=== PATIENT | female | born 1980 | race Caucasian/White ===

== ENCOUNTER 2016-05-17 14:00 | Outpatient (RCR) | payer OTHER | END 2016-05-18 | disposition home or self-care (01) | LOC: M OUTALCOH 14:00 | PROVIDERS: ATTEND Psychiatry & Neurology Psychiatry | DX: F11.20 Opioid dependence, uncomplicated (principal); F14.20 Cocaine dependence, uncomplicated; Z72.0 Tobacco use ==

== ENCOUNTER 2016-06-14 14:00 | Outpatient (RCR) | payer OTHER | END 2016-06-15 | LOC: M OUTALCOH 14:00 | PROVIDERS: ATTEND Psychiatry & Neurology Psychiatry | DX: F14.20 Cocaine dependence, uncomplicated (principal); F11.20 Opioid dependence, uncomplicated; Z72.0 Tobacco use ==

== ENCOUNTER → 2016-07-16 | Outpatient (RCR) | payer OTHER | LOC: M OUTALCOH 06-18 08:53 | PROVIDERS: ATTEND Psychiatry & Neurology Psychiatry | DX: F14.20 Cocaine dependence, uncomplicated (principal); F11.20 Opioid dependence, uncomplicated; Z72.0 Tobacco use ==

== ENCOUNTER 2016-08-13 15:00 | Outpatient (RCR) | payer OTHER | END 2016-08-15 | LOC: M OUTALCOH 15:00 | PROVIDERS: ATTEND Psychiatry & Neurology Psychiatry | DX: F14.20 Cocaine dependence, uncomplicated (principal); F11.20 Opioid dependence, uncomplicated; Z72.0 Tobacco use ==

== ENCOUNTER → 2016-12-14 | Outpatient (REF) | LOC: M LAB 13:28 | PROVIDERS: ATTEND Nurse Practitioner Adult Health | DX: Z02.1 Encounter for pre-employment examination (principal) ==

== ENCOUNTER 2018-03-27 21:06 | Emergency (ER) | payer SELFPAY, OTHER ==
[2018-03-27] MEDS: OXYCODONE/APAP 5MG/325MG(BULK FOR ED) 1 TABLET PO (22:38)
== END 2018-03-27 22:39 | disposition home or self-care (01) ==
LOC: M ED 21:06
DX: R68.84 Jaw pain (principal); Z88.8 Allergy status to other drugs, medicaments and biological substances; F17.210 Nicotine dependence, cigarettes, uncomplicated
CPT/HCPCS: 99282

== ENCOUNTER 2018-06-19 19:29 | Inpatient (IN) | payer OTHER, SELFPAY ==
[~2018-06-19] VITALS: Ht 170.2 cm; Wt 75.8 kg
[~2018-06-19 19:29] MED LIST: PERC5TAB12 PO
[2018-06-19] MEDS ORDERED: LAMO25TA4 (19:36)
[2018-06-19] MEDS ORDERED: QUET1TAB7 (19:36)
[2018-06-19 20:25] LABS: INFLUENZA A AMPLIFICATION NEGATIVE (NEGATIVE); INFLUENZA B AMPLIFICATION NEGATIVE (NEGATIVE)
[2018-06-19] MEDS ORDERED: NS 1,000 ML IV ONE (21:30)
[2018-06-19 21:44] LABS: BASO % 0.1 % (0.0-1.0); EOS % 0.2 % (0.0-3.0); HEMATOCRIT 35.9 % (36.0-47.0); HEMOGLOBIN 12.2 g/dl (12.0-15.5); LYMPH # 2.2 10^3/uL (1.5-4.5); LYMPH % 12.6 % (24.0-44.0); MEAN CORPUSCULAR HEMOGLOBIN 30.8 pg (27.0-33.0); MEAN CORPUSCULAR VOLUME 90.7 fl (80.0-96.0); MONO # 0.8 10^3/uL (0.0-0.8); MONO % 4.6 % (0.0-5.0); NEUTROPHILS # 14.4 10^3/uL (1.8-7.7); NEUTROPHILS % 82.1 % (36.0-66.0); PLATELET COUNT, AUTOMATED 379 10^3/uL (150-450); RED BLOOD COUNT 3.96 10^6/uL (4.00-5.40); WHITE BLOOD COUNT 17.5 10^3/uL (4.0-10.0)
[2018-06-19 21:45] LABS: VENOUS BASE EXCESS -3.9 (-2.0-2.0); VENOUS HCO3 21.3 MEQ/L (23.0-27.0); VENOUS O2 SATURATION 76.4 % (60.0-80.0); VENOUS PARTIAL PRESSURE CO2 39.5 mmHg (38.0-50.0); VENOUS PARTIAL PRESSURE O2 42.6 mmHg (30.0-50.0); VENOUS STANDARD HCO3 20.8 MEQ/L; VENOUS TOTAL CO2 22.5 MEQ/L (24.0-28.0)
[2018-06-19 21:55] LABS: INR 1.05; PROTHROMBIN TIME 13.8 SECONDS (12.1-14.4)
[2018-06-19 21:58] LABS: D-DIMER QUANT 443.58 ng/ml (<500)
[2018-06-19 22:02] LABS: ERYTHROCYTE SEDIMENTATION RATE 66 mm/hr (0-20)
[2018-06-19 22:10] LABS: ALBUMIN 3.7 GM/DL (3.2-5.2); ALT/SGPT 14 U/L (12-78); BILIRUBIN,DIRECT < 0.1 MG/DL (0.0-0.2); BILIRUBIN,TOTAL 0.3 MG/DL (0.2-1.0); BLOOD UREA NITROGEN 11 MG/DL (7-18); CALCIUM LEVEL 8.5 MG/DL (8.5-10.1); CARBON DIOXIDE LEVEL 23 MEQ/L (21-32); CHLORIDE LEVEL 108 MEQ/L (98-107); CK-MB VALUE MASS < 1.0 NG/ML (<3.6); CPK CREATINE PHOSPHOKINASE 174 U/L (26-192); CREATININE FOR GFR 1.03 MG/DL (0.55-1.30); FREE T4 1.31 NG/DL (0.76-1.46); GLOMERULAR FILTRATION RATE > 60.0 (>60); GLUCOSE, FASTING 100 MG/DL (70-100); MB/CK RELATIVE INDEX 0.57 (< OR =4); NT-PRO BNP 95 PG/ML (<125); POTASSIUM SERUM 3.3 MEQ/L (3.5-5.1); SODIUM LEVEL 141 MEQ/L (136-145); TOTAL PROTEIN 7.6 GM/DL (6.4-8.2); TROPONIN I < 0.02 NG/ML (< 0.10)
--- NOTE | 2018-06-19 22:10 | REP ---
Clinical: Shortness of breath . Comparison: None . Technique: PA and lateral. Findings: The mediastinum and cardiac silhouette are normal. The lung marcano are clear and without acute consolidation, effusion, or pneumothorax. The skeletal structures are intact and normal. Impression: 1. No acute cardiopulmonary process. Electronically Signed by Hiro Kelly MD 06/19/2018 10:02 P
--- NOTE | 2018-06-19 22:35 | REPVR ---
EXAM: US Duplex Right Lower Extremity Veins, Limited EXAM DATE/TIME: 06/19/2018 10:04 PM CLINICAL HISTORY: 37 years old, female; Signs and symptoms; Swelling (edema) of limb; Lower extremity, right; Additional info: Swelling/cramping right leg TECHNIQUE: Real-time Duplex ultrasound of the Right Lower Extremity with 2-D casey scale, color Doppler flow and spectral waveform analysis. Limited exam was focused on the right lower extremity veins. COMPARISON: No relevant prior studies available. FINDINGS: Right deep veins: Unremarkable. The common femoral, femoral, proximal profunda femoral and popliteal veins are patent without thrombus. Normal Doppler waveforms. Normal compressibility and/or augmentation response. Right superficial veins: Unremarkable. Saphenofemoral junction is patent without thrombus. Soft tissues: Unremarkable. IMPRESSION: No acute findings. No evidence of deep vein thrombosis. Electronically signed by: Kvng John On 06/19/2018 22:35:40 PM
[2018-06-19] MEDS ORDERED: methylPREDNISolone INJ 125 MG/2 ML VIAL (J2930) IV ONE (22:45)
[2018-06-19] MEDS ORDERED: ALBUTEROL SULFATE 2.5 MG/0.5 ML INH NEB SOLN NEB ONE (22:45)
[2018-06-20] MEDS ORDERED: ISOVUE-370 76% 100ML VIAL (Q9967) As Ordered ONE (00:05)
--- NOTE | 2018-06-20 01:04 | REPVR ---
EXAM: CT Angiography Chest With Contrast EXAM DATE/TIME: 06/19/2018 12:10 AM CLINICAL HISTORY: 37 years old, female; Signs and symptoms; Cough and shortness of breath; Additional info: SOB x 2 months TECHNIQUE: Axial computed tomographic angiography images of the chest with intravenous contrast using CT angiography protocol. All CT scans at this facility use at least one of these dose optimization techniques: automated exposure control; mA and/or kV adjustment per patient size (includes targeted exams where dose is matched to clinical indication); or iterative reconstruction. Coronal and sagittal reformatted images were created and reviewed. MIP reconstructed images were created and reviewed. CONTRAST: Contrast Material: 75 ml of iso 370; Contrast Route: iv COMPARISON: CR Chest, 2 view PA, Lat 06/19/2018 8:07 PM FINDINGS: Pulmonary arteries: The main pulmonary artery measures 25 mm. No pulmonary embolism is identified. Aorta: The ascending thoracic aorta measures 26 mm. Lungs: Infiltrate in the left lower lobe and minimal infiltrates in the lingula, right lower lobe and anterior segment of the right upper lobe consistent with pneumonia. Pleural space: Normal. No pneumothorax. No pleural effusion. Heart: Normal. No cardiomegaly. No pericardial effusion. Lymph nodes: Upper normal left inferior hilar nodes. Bones/joints: Unremarkable. No acute fracture. Soft tissues: Unremarkable. IMPRESSION: 1. Left lower lobe and to a lesser degree lingular, right lower lobe and anterior right upper lobe infiltrates consistent with pneumonia. 2. Otherwise negative CTA chest. No pulmonary embolism is identified. Electronically signed by: Cisco Parham On 06/20/2018 01:03:26 AM
[2018-06-20] MEDS ORDERED: NS 1,000 ML IV ONE (01:30)
[2018-06-20] MEDS ORDERED: PIPERACILLIN/TAZOBACTAM SOD 4.5 GM in D5W MINI-BAG PLUS 50 ML IV ONE (01:30)
[2018-06-20] MEDS ORDERED: NS 1,000 ML IV SCH (01:50)
[2018-06-20] MEDS ORDERED: LAMO25TA4 PO (01:51)
[2018-06-20] MEDS ORDERED: VENTAER INH (01:51)
[2018-06-20] MEDS ORDERED: HYDR-3363 PO (01:51)
[2018-06-20] MEDS ORDERED: TRAZ-160 PO (01:51)
[2018-06-20] MEDS ORDERED: QUET1TAB7 PO (01:51)
[2018-06-20] MEDS ORDERED: ONDANSETRON 4MG/2ML VIAL (J2405) IV PRN (02:00)
[2018-06-20] MEDS ORDERED: hydrOXYzine 25 MG TAB PO PRN (02:00)
[2018-06-20] MEDS: POTASSIUM CHLORIDE 10 MEQ SR TABLET PO SCH ×2 (03:44→06:02)
[2018-06-20] MEDS: cefTRIAXone SOD 1 GM in D5W MINI-BAG PLUS 50 ML IV SCH (03:44)
[2018-06-20 05:00] VITALS: BP 123/81
[2018-06-20] MEDS: DOXYCYCLINE HYCLATE 100 MG in D5W MINI-BAG PLUS 100 ML IV SCH ×2 (06:02→16:51)
[2018-06-20] MEDS: HEPARIN SOD (PORCINE) 5000 UNITS/ML VIAL SC SCH ×3 (06:02→20:55)
--- NOTE | 2018-06-20 07:08 | HPE ---
DATE OF ADMISSION: 06/20/2018 CHIEF COMPLAINT: Cough, shortness of breath, fevers and chills. HISTORY OF PRESENT ILLNESS: Patient is a 37-year-old female with a history of bipolar disorder and migraines. She presented to the emergency room with worsening nonproductive cough, subjective fevers and chills, nausea and vomiting, progressive dyspnea on exertion for the last 8 days. Notably in the patient's history, in early April she had some pulmonary-type symptoms. Went to urgent care and was given some prednisone and a dose of Zithromax. She improved temporarily but subsequently worsened over the last 7-8 days with nonproductive cough, subjective fevers and chills, nausea, vomiting, worsening dyspnea. She denies any chest pain, abdominal pain, urinary symptoms. PAST MEDICAL HISTORY: See history of present illness (HPI). PAST SURGICAL HISTORY: section. Hysterectomy. ALLERGIES: SUMATRIPTAN. HOME MEDICATIONS: - hydroxyzine - Lamictal - Seroquel - trazodone SOCIAL HISTORY: She is a current smoker. Denies alcohol or illicit drug use. FAMILY HISTORY: Noncontributory. REVIEW OF SYSTEMS: A 12-point review of systems was completed, all of which were negative except those listed in the history of present illness (HPI). Vitals on admission: Temperature 97, pulse 114, respirations 20, saturating 100% on room air. PHYSICAL EXAMINATION: General: She is well-nourished in no apparent distress. Head is normocephalic, atraumatic. Eyes: Extraocular movements are intact. Pupils equal, round, and reactive to light. Neck is supple. No jugular venous pulse (JVP). Lungs: Right lower lobe crackles. No wheezing. No use of accessory muscles. Cardiovascular: Tachycardic. Normal S1, S2. No murmurs, gallops or rubs. Abdomen is soft, nontender, nondistended. Positive bowel sounds. No rebound or guarding. Extremities: No pitting edema or calf tenderness. Skin is intact. No rashes, lesions or breakdown. Neurologic: Alert and oriented timed three. No focal deficits. LABS AND IMAGING: Done in the emergency room. White count 17, hemoglobin and hematocrit 12/35, platelets 379. Coagulations within normal limits. D-dimer is 443. Chemistries show potassium 3.3, BUN and creatinine of 11 and 1.0. CRP 12.7, troponins are negative, lactate is pending. Urinalysis (UA) is unremarkable. Rapid flu is negative. CT angio of the chest shows left lower lobe, and to a lesser degree, right lower lobe and anterior right upper lobe infiltrates consistent with pneumonia. Otherwise, negative CTA. No pulmonary embolus (PE). Dopplers are negative. Chest x-ray is unremarkable. ASSESSMENT/PLAN: Sepsis secondary to community acquired pneumonia: Will treat her with ceftriaxone and doxycycline, oxygen as needed. Sputum culture, urine legionella, urine pneumococcal antigen. Tylenol as needed for fevers and chills. IV fluids. Will get a lactate. For mood disorder, continue home medications. Supportive deep venous thrombosis (DVT): Heparin subcutaneous. Gastrointestinal (GI) prophylaxis: Not indicated. Diet: Regular.
[2018-06-20 07:50] VITALS: BP 128/73
[2018-06-20] MEDS: IPRATROPIUM 0.5MG/ALBUTEROL 2.5MG INH SOL UD 3ML (DUONEB)(J7620) NEB PRN ×2 (08:50→16:15)
[2018-06-20] MEDS ORDERED: ACETAMINOPHEN TAB 650MG DOSE (2X325MG) PO ONE (09:00)
--- NOTE | 2018-06-20 11:43 | ECGEPIP ---
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
[2018-06-20] MEDS: ACETAMINOPHEN TAB 650MG DOSE (2X325MG) PO PRN ×2 (12:04→17:32)
--- NOTE | 2018-06-20 12:44 | IPNPDOC ---
Date Seen The patient was seen on 06/20/18. Progress Note ADDENDUM : C/O HEADACHE allergy to Sumatriptan iv reglan and iv benadryl C/O NONPRODUCTIVE COUGH mucinex bid respiratory therapy to induce sputum check mrsa screen and sputum cx. VS, I&O, 24H, Fishbone Vital Signs/I&O Vital Signs Date Time Temp Pulse Resp B/P (MAP) Pulse Ox O2 Delivery O2 Flow Rate FiO2 06/20/18 07:50 98.0 102 20 128/73 (91) 98 06/20/18 02:30 Room Air I&O- Last 24 Hours up to 6 AM 06/20/18 06:00 Intake Total 240 ml Balance 240 ml Laboratory Data 24H LABS Laboratory Tests 2 06/19/18 19:42: Influenza Type A (RT-PCR) NEGATIVE, Influenza Type B (RT-PCR) NEGATIVE 06/19/18 21:28: Immature Granulocyte % (Auto) 0.4, White Blood Count 17.5H, Red Blood Count 3.96L, Hemoglobin 12.2, Hematocrit 35.9L, Mean Corpuscular Volume 90.7, Mean Corpuscular Hemoglobin 30.8, Mean Corpuscular Hemoglobin Concent 34.0, Red Cell Distribution Width 12.5, Platelet Count 379, Neutrophils (%) (Auto) 82.1H, Lymp hocytes (%) (Auto) 12.6L, Monocytes (%) (Auto) 4.6, Eosinophils (%) (Auto) 0.2, Basophils (%) (Auto) 0.1, Neutrophils # (Auto) 14.4H, Lymphocytes # (Auto) 2.2, Monocytes # (Auto) 0.8, Eosinophils # (Auto) 0.0, Basophils # (Auto) 0.0, Nucleated Red Blood Cells % (auto) 0.0, Erythrocyte Sedimentation Rate 66H, Prothrombin Time 13.8, Prothromb Time International Ratio 1.05, Activated Partial Thromboplast Time 36.0, D-Dimer, Quantitative 443.58, Urine Color YELLOW, Urine Appearance CLEAR, Urine pH 5.0, Urine Specific [place] 1.015, Urine Protein NEGATIVE, Urine Glucose (UA) NEGATIVE, Urine Ketones NEGATIVE, Urine Blood NEGATIVE, Urine Nitrite NEGATIVE, Urine Bilirubin 1+H, Urine Urobilinogen 0.2, Urine Leukocyte Esterase NEGATIVE, Urine WBC (Auto) 1, Urine RBC (Auto) 0, Urine Hyaline Casts (Auto) 0, Urine Bacteria (Auto) NEGATIVE, Urine Squamous Epithelial Cells 1, Urine Mucus (Auto) SMALL, Urine Sperm (Auto) , Blood Gas Bicarbonate Standard 20.8, Venous Blood pH 7.350, Venous Blood Partial Pressure CO2 39.5, Venous Blood Partial Pressure O2 42.6, Venous Blood Total Carbon Dioxide 22.5L, Venous Blood HCO3 21.3L, Venous Blood Oxygen Saturation 76.4, Venous Blood Base Excess -3.9L, Anion Gap 10, Glomerular Filtration Rate > 60.0, Calcium Level 8.5, Aspartate Amino Transf (AST/SGOT) 14, Alanine Aminotransferase (ALT/SGPT) 14, Alkaline Phosphatase 80, Total Bilirubin 0.3, Direct Bilirubin < 0.1, Total Creatine Kinase 174, Creatine Kinase MB < 1.0, Creatine Kinase MB Relative Index 0.57, Troponin I < 0.02, C-Reactive Protein, Quantitative 12.70H, NM-Urw-V-Type Natriuretic Peptide 95, Total Protein 7.6, Albumin 3.7, Albumin/Globulin Ratio 0.95L, Thyroid Stimulating Hormone (TSH) 1.250, Free Thyroxine 1.31 06/20/18 01:44: Lactic Acid Level 2.7*H 06/20/18 02:15: 06/20/18 06:16: Lactic Acid Followup at 4 Hours 2.4*H CBC/BMP Laboratory Tests 06/19/18 21:28 Red Blood Count 3.96 L, Mean Corpuscular Volume 90.7, Mean Corpuscular Hemoglobin 30.8, Mean Corpuscular Hemoglobin Concent 34.0, Red Cell Distribution Width 12.5, Neutrophils (%) (Auto) 82.1 H, Lymphocytes (%) (Auto) 12.6 L, Monocytes (%) (Auto) 4.6, Eosinophils (%) (Auto) 0.2, Basophils (%) (Auto) 0.1, Neutrophils # (Auto) 14.4 H, Lymphocytes # (Auto) 2.2, Monocytes # (Auto) 0.8, Eosinophils # (Auto) 0.0, Basophils # (Auto) 0.0 Microbiology Microbiology 06/20/18 Blood Culture, Received Pending 06/20/18 Blood Culture, Received Pending 06/20/18 Respiratory Virus Panel (PCR) ([facility]) - Final, Complete 06/19/18 Group A Streptococcus Screen ([facility]), Received Pending ANN NERI MD Jun 20, 2018 12:44
[2018-06-20] MEDS ORDERED: METOCLOPRAMIDE INJ 10MG/2ML VIAL (J2765) IV ONE (12:45)
[2018-06-20] MEDS ORDERED: diphenhydrAMINE INJ 50MG/ML VIAL (J1200) IV ONE (12:45)
[2018-06-20] MEDS: guaiFENesin ER 600 MG TAB PO SCH ×2 (14:01→20:56)
[2018-06-20 16:08] VITALS: BP 129/84
[2018-06-20] MEDS ORDERED: KETOROLAC 30 MG/ML VIAL (J1885) IV PRN (18:30)
[2018-06-20 20:00] VITALS: BP 138/88
[2018-06-20] MEDS: QUEtiapine FUMARATE 25 MG TAB PO SCH (20:54)
[2018-06-20] MEDS: lamoTRIgine 25 MG TAB PO SCH (20:54)
[2018-06-20] MEDS: NS 1,000 ML IV SCH (20:57)
[2018-06-20 21:01] LABS: BASO % 0.1 % (0.0-1.0); EOS % 0.1 % (0.0-3.0); HEMATOCRIT 31.9 % (36.0-47.0); HEMOGLOBIN 10.6 g/dl (12.0-15.5); LYMPH # 2.2 10^3/uL (1.5-4.5); LYMPH % 16.1 % (24.0-44.0); MEAN CORPUSCULAR HGB CONC 33.2 g/dl (32.0-36.5); MEAN CORPUSCULAR VOLUME 90.4 fl (80.0-96.0); MONO % 7.1 % (0.0-5.0); NEUTROPHILS # 10.3 10^3/uL (1.8-7.7); NEUTROPHILS % 75.8 % (36.0-66.0); PLATELET COUNT, AUTOMATED 401 10^3/uL (150-450); RED BLOOD COUNT 3.53 10^6/uL (4.00-5.40); WHITE BLOOD COUNT 13.7 10^3/uL (4.0-10.0)
[2018-06-20 21:19] LABS: BLOOD UREA NITROGEN 8 MG/DL (7-18); CALCIUM LEVEL 8.4 MG/DL (8.5-10.1); CARBON DIOXIDE LEVEL 22 MEQ/L (21-32); CHLORIDE LEVEL 114 MEQ/L (98-107); CREATININE FOR GFR 0.97 MG/DL (0.55-1.30); GLOMERULAR FILTRATION RATE > 60.0 (>60); GLUCOSE, FASTING 99 MG/DL (70-100); POTASSIUM SERUM 3.6 MEQ/L (3.5-5.1); SODIUM LEVEL 145 MEQ/L (136-145)
[2018-06-21] VITALS: BP 125/75
[2018-06-21] MEDS: KETOROLAC 30 MG/ML VIAL (J1885) IV SCH ×2 (00:18→05:00)
[2018-06-21] MEDS: cefTRIAXone SOD 1 GM in D5W MINI-BAG PLUS 50 ML IV SCH (01:31)
[2018-06-21] MEDS: traZODone 50 MG TAB PO PRN ×2 (01:31→21:56)
[2018-06-21] MEDS: DOXYCYCLINE HYCLATE 100 MG in D5W MINI-BAG PLUS 100 ML IV SCH ×2 (04:59→16:49)
[2018-06-21] MEDS: HEPARIN SOD (PORCINE) 5000 UNITS/ML VIAL SC SCH ×3 (05:00→21:56)
[2018-06-21] MEDS: NS 1,000 ML IV SCH (06:08)
[2018-06-21 08:00] VITALS: BP 136/87
[2018-06-21] MEDS: METOCLOPRAMIDE INJ 10MG/2ML VIAL (J2765) IV SCH ×3 (08:00→20:00)
[2018-06-21 08:01] LABS: HEMATOCRIT 31.2 % (36.0-47.0); HEMOGLOBIN 10.2 g/dl (12.0-15.5); MEAN CORPUSCULAR HEMOGLOBIN 29.7 pg (27.0-33.0); MEAN CORPUSCULAR HGB CONC 32.7 g/dl (32.0-36.5); MEAN CORPUSCULAR VOLUME 90.7 fl (80.0-96.0); PLATELET COUNT, AUTOMATED 373 10^3/uL (150-450); RED BLOOD COUNT 3.44 10^6/uL (4.00-5.40); WHITE BLOOD COUNT 9.9 10^3/uL (4.0-10.0)
[2018-06-21 08:27] LABS: BLOOD UREA NITROGEN 12 MG/DL (7-18); CARBON DIOXIDE LEVEL 22 MEQ/L (21-32); CHLORIDE LEVEL 112 MEQ/L (98-107); CREATININE FOR GFR 0.95 MG/DL (0.55-1.30); GLOMERULAR FILTRATION RATE > 60.0 (>60); GLUCOSE, FASTING 90 MG/DL (70-100); POTASSIUM SERUM 3.6 MEQ/L (3.5-5.1); SODIUM LEVEL 142 MEQ/L (136-145)
[2018-06-21] MEDS: guaiFENesin ER 600 MG TAB PO SCH ×2 (08:33→21:56)
--- NOTE | 2018-06-21 09:22 | IPNPDOC ---
Date Seen The patient was seen on 06/21/18. Progress Note SUBJECTIVE: C/O nonproductive cough 06/20/18 induced sputum, cx pending improved h/a diffuse without aura on iv toradol iv reglan iv fluids. allergy to sumatriptan c/o joint pains b/l mcp, pip, dip x about 6-8 weeks at home and left hip pain worse when sitting and driving "deep ache" going to my knee. no h/o trauma or weakness. also c/o alopecia PHYSICAL EXAMINATION: General: She is well-nourished in no apparent distress. Head is normocephalic, atraumatic. Eyes: Extraocular movements are intact. Pupils equal, round, and reactive to light. Neck is supple. No jugular venous pulse (JVP). Lungs: Right lower lobe crackles. No wheezing. No use of accessory muscles. Cardiovascular: Tachycardic. Normal S1, S2. No murmurs, gallops or rubs. Abdomen is soft, nontender, nondistended. Positive bowel sounds. No rebound or guarding. Extremities: No pitting edema or calf tenderness.left hip ROM limited with internal rotation. flexion and extension wnl. Skin is intact. No rashes, lesions or breakdown. musculoskeletal: no bogginess of b/l mcp, pip, dip joints. Neurologic: Alert and oriented timed three. No focal deficits. LABS AND IMAGING: PLS SEE BELOW ASSESSMENT/PLAN: Patient is a 37-year-old female with a history of bipolar disorder and migraines. She presented to the emergency room with worsening nonproductive cough, subjective fevers and chills, nausea and vomiting, progressive dyspnea on exertion for the last 8 days. Notably in the patient's history, in early April she had some pulmonary-type symptoms. Went to urgent care and was given some prednisone and a dose of Zithromax. She improved temporarily but subsequently worsened over the last 7-8 days with nonproductive cough, subjective fevers and chills, nausea, vomiting, worsening dyspnea. She denies any chest pain, abdominal pain, urinary symptoms. Sepsis secondary to community acquired pneumonia: Will treat her with ceftriaxone and doxycycline, oxygen as needed. Sputum culture, urine legionella, urine pneumococcal antigen. Tylenol as needed for fevers and chills. IV fluids. Will get a lactate. Bilateral CAP. awaiting sputum cx. check complement levels and ig levels. Left hip pain most likely meralgia paresthetica. NSAIDs and physical therapy. Xray of left hip joint pains in b/l hand check johnathan, xray. Migraine on iv metoclopramide iv toradol iv fluids. Alopecia most likely telogen effluvium. check tsh. For mood disorder, continue home medications. Supportive deep venous thrombosis (DVT): Heparin subcutaneous. Gastrointestinal (GI) prophylaxis: Not indicated. Diet: Regular. VS, I&O, 24H, Fishbone Vital Signs/I&O Vital Signs Date Time Temp Pulse Resp B/P (MAP) Pulse Ox O2 Delivery O2 Flow Rate FiO2 06/21/18 00:00 99.1 81 16 125/75 (92) 97 06/20/18 02:30 Room Air I&O- Last 24 Hours up to 6 AM 06/21/18 06:00 Intake Total 3430 ml Output Total 2300 ml Balance 1130 ml Laboratory Data 24H LABS Laboratory Tests 2 06/20/18 20:51: Immature Granulocyte % (Auto) 0.8, White Blood Count 13.7H, Red Blood Count 3.53L, Hemoglobin 10.6L, Hematocrit 31.9L, Mean Corpuscular Volume 90.4, Mean Corpuscular Hemoglobin 30.0, Mean Corpuscular Hemoglobin Concent 33.2, Red Cell Distribution Width 12.8, Platelet Count 401, Neutrophils (%) (Auto) 75.8H, Lymphocytes (%) (Auto) 16.1L, Monocytes (%) (Auto) 7.1H, Eosinophils (%) (Auto) 0.1, Basophils (%) (Auto) 0.1, Neutrophils # (Auto) 10.3H, Lymphocytes # (Auto) 2.2, Monocytes # (Auto) 1.0H, Eosinophils # (Auto) 0.0, Basophils # (Auto) 0.0, Nucleated Red Blood Cells % (auto) 0.0, Anion Gap 9, Glomerular Filtration Rate > 60.0, Lactic Acid Level 1.6, Blood Urea Nitrogen 8, Creatinine 0.97, Sodium Level 145, Potassium Level 3.6, Chloride Level 114H, Carbon Dioxide Level 22, Calcium Level 8.4L 06/21/18 07:20: CBC/BMP Laboratory Tests 06/20/18 20:51 Red Blood Count 3.53 L, Mean Corpuscular Volume 90.4, Mean Corpuscular Hemoglobin 30.0, Mean Corpuscular Hemoglobin Concent 33.2, Red Cell Distribution Width 12.8, Neutrophils (%) (Auto) 75.8 H, Lymphocytes (%) (Auto) 16.1 L, Monocytes (%) (Auto) 7.1 H, Eosinophils (%) (Auto) 0.1, Basophils (%) (Auto) 0.1, Neutrophils # (Auto) 10.3 H, Lymphocytes # (Auto) 2.2, Monocytes # (Auto) 1.0 H, Eosinophils # (Auto) 0.0, Basophils # (Auto) 0.0, Calcium Level 8.4 L Microbiology Microbiology 06/20/18 Blood Culture - Preliminary, Resulted No growth after 24 hours . All specim... 06/20/18 Blood Culture - Preliminary, Resulted No growth after 24 hours . All specim... 06/20/18 Gram Stain, Received Pending 06/20/18 Sputum Culture, Received Pending 06/20/18 MRSA Screen, Received Pending 06/20/18 Respiratory Virus Panel (PCR) ([facility]) - Final, Complete 06/19/18 Group A Streptococcus Screen ([facility]) - Final, Complete ANN NERI MD Jun 21, 2018 07:54
[2018-06-21 10:16] LABS: C REACTIVE PROTEIN QUANTITATIV 4.35 MG/DL (0.00-0.30); COMPLEMENT C3 126 MG/DL (90-180); COMPLEMENT C4 35 MG/DL (10-40); IMMUNOGLOBULIN A 41.9 MG/DL (70-400); IMMUNOGLOBULIN G 621 MG/DL (681-1648); IMMUNOGLOBULIN M 46.5 MG/DL (40-230); RHEUMATOID FACTOR QUANT < 10.0 IU/ML (<15.0); THYROID STIMULATING HORMONE 0.822 uIU/ML (0.358-3.740)
[2018-06-21 10:17] LABS: ERYTHROCYTE SEDIMENTATION RATE 49 mm/hr (0-20)
[2018-06-21] MEDS ORDERED: KETOROLAC 30 MG/ML VIAL (J1885) IV PRN (11:45)
--- NOTE | 2018-06-21 15:12 | REP ---
Right hand series: Four views. History: Joint pain, MCP and PIP. Rule out rheumatoid arthritis. No comparison hand radiographs. Findings: Four views of the right hand demonstrate overall normal mineralization. There is mild spurring and irregularity at the DIP joint of the ring finger. Lateral view suggests post-traumatic deformity of the distal phalanx. Overall mineralization pattern is normal. Joint spaces are preserved. No erosive changes seen to suggest rheumatoid arthritis. 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 Otherwise normal. Electronically Signed by Bryan Campo MD 06/21/2018 05:08 P
[2018-06-21 16:00] VITALS: BP 153/87
[2018-06-21 20:00] VITALS: BP 160/81
[2018-06-21] MEDS: lamoTRIgine 25 MG TAB PO SCH (21:57)
[2018-06-21] MEDS: QUEtiapine FUMARATE 25 MG TAB PO SCH (21:57)
[2018-06-22] VITALS: BP 133/81
[2018-06-22] MEDS: METOCLOPRAMIDE INJ 10MG/2ML VIAL (J2765) IV SCH ×2 (02:00→08:27)
[2018-06-22] MEDS: cefTRIAXone SOD 1 GM in D5W MINI-BAG PLUS 50 ML IV SCH (03:03)
[2018-06-22] MEDS: DOXYCYCLINE HYCLATE 100 MG in D5W MINI-BAG PLUS 100 ML IV SCH (05:52)
[2018-06-22] MEDS: HEPARIN SOD (PORCINE) 5000 UNITS/ML VIAL SC SCH (05:52)
[2018-06-22] MEDS ORDERED: MOXIFLOXACIN 400 MG TAB PO SCH (06:00)
[2018-06-22 07:26] LABS: HEMATOCRIT 33.8 % (36.0-47.0); HEMOGLOBIN 11.4 g/dl (12.0-15.5); MEAN CORPUSCULAR HEMOGLOBIN 30.1 pg (27.0-33.0); MEAN CORPUSCULAR HGB CONC 33.7 g/dl (32.0-36.5); MEAN CORPUSCULAR VOLUME 89.2 fl (80.0-96.0); PLATELET COUNT, AUTOMATED 434 10^3/uL (150-450); RED BLOOD COUNT 3.79 10^6/uL (4.00-5.40); WHITE BLOOD COUNT 11.6 10^3/uL (4.0-10.0)
[2018-06-22] MEDS ORDERED: AVEL1TAB3 PO (07:48)
[2018-06-22 07:49] LABS: BLOOD UREA NITROGEN 13 MG/DL (7-18); CALCIUM LEVEL 8.1 MG/DL (8.5-10.1); CARBON DIOXIDE LEVEL 22 MEQ/L (21-32); CHLORIDE LEVEL 112 MEQ/L (98-107); CREATININE FOR GFR 0.95 MG/DL (0.55-1.30); GLOMERULAR FILTRATION RATE > 60.0 (>60); GLUCOSE, FASTING 92 MG/DL (70-100); POTASSIUM SERUM 4.1 MEQ/L (3.5-5.1); SODIUM LEVEL 141 MEQ/L (136-145)
[2018-06-22 08:00] VITALS: BP 136/86
--- NOTE | 2018-06-22 08:18 | IPNPDOC ---
Date Seen The patient was seen on 06/22/18. Progress Note SUBJECTIVE: requesting to go home today. afebrile despite slight increased white count still w productive cough. sputum cx pending. no sob or chills. PHYSICAL EXAMINATION: General: She is well-nourished in no apparent distress. Head is normocephalic, atraumatic. Eyes: Extraocular movements are intact. Pupils equal, round, and reactive to light. Neck is supple. No jugular venous pulse (JVP). Lungs: Right lower lobe crackles. No wheezing. No use of accessory muscles. Cardiovascular: Tachycardic. Normal S1, S2. No murmurs, gallops or rubs. Abdomen is soft, nontender, nondistended. Positive bowel sounds. No rebound or guarding. Extremities: No pitting edema or calf tenderness.left hip ROM limited with internal rotation. flexion and extension wnl. Skin is intact. No rashes, lesions or breakdown. musculoskeletal: no bogginess of b/l mcp, pip, dip joints. Neurologic: Alert and oriented timed three. No focal deficits. LABS AND IMAGING: PLS SEE BELOW ASSESSMENT/PLAN: Patient is a 37-year-old female with a history of bipolar disorder and migraines. She presented to the emergency room with worsening nonproductive cough, subjective fevers and chills, nausea and vomit ing, progressive dyspnea on exertion for the last 8 days. Notably in the patient's history, in early April she had some pulmonary-type symptoms. Went to urgent care and was given some prednisone and a dose of Zithromax. She improved temporarily but subsequently worsened over the last 7-8 days with nonproductive cough, subjective fevers and chills, nausea, vomiting, worsening dyspnea. She denies any chest pain, abdominal pain, urinary symptoms. Sepsis secondary to community acquired pneumonia: Will treat her with ceftriaxone and doxycycline, oxygen as needed. Sputum culture, urine legionella, urine pneumococcal antigen. Tylenol as needed for fevers and chills. IV fluids. Will get a lactate. Bilateral CAP. awaiting sputum cx. wnl complement levels and slightly low ig levels. recheck ig levels once pneumonia resolves. outpt pcp to determine if needs immunology or ID referral. Left hip pain most likely meralgia paresthetica. NSAIDs and physical therapy. Xray of left hip joint pains in b/l hand check johnathan, xray. Migraine on iv metoclopramide iv toradol iv fluids. Alopecia most likely telogen effluvium. check tsh. For mood disorder, continue home medications. Supportive deep venous thrombosis (DVT): Heparin subcutaneous. Gastrointestinal (GI) prophylaxis: Not indicated. Diet: Regular. disposition: nv home today. VS, I&O, 24H, Fishbone Vital Signs/I&O Vital Signs Date Time Temp Pulse Resp B/P (MAP) Pulse Ox O2 Delivery O2 Flow Rate FiO2 06/22/18 00:00 97.5 82 18 133/81 (98) 97 06/20/18 02:30 Room Air I&O- Last 24 Hours up to 6 AM 06/22/18 06:00 Intake Total 1230 ml Output Total 2150 ml Balance -920 ml Laboratory Data 24H LABS Laboratory Tests 2 06/21/18 10:10: 06/22/18 07:17: Nucleated Red Blood Cells % (auto) 0.0, Anion Gap 7L, Glomerular Filtration Rate > 60.0, Blood Urea Nitrogen 13, Creatinine 0.95, Sodium Level 141, Potassium Level 4.1, Chloride Level 112H, Carbon Dioxide Level 22, Calcium Level 8.1L CBC/BMP Laboratory Tests 06/22/18 07:17 Red Blood Count 3.79 L, Mean Corpuscular Volume 89.2, Mean Corpuscular Hemoglobin 30.1, Mean Corpuscular Hemoglobin Concent 33.7, Red Cell Distribution Width 12.8, Calcium Level 8.1 L Microbiology Microbiology 06/20/18 Blood Culture - Preliminary, Resulted No Growth after 48 hours. All Specime... 06/20/18 Blood Culture - Preliminary, Resulted No Growth after 48 hours. All Specime... 06/20/18 Gram Stain - Final, Resulted 06/20/18 Sputum Culture, Resulted Pending 06/20/18 MRSA Screen - Final, Complete 06/20/18 Respiratory Virus Panel (PCR) ([facility]) - Final, Complete 06/19/18 Group A Streptococcus Screen ([facility]) - Final, Complete ANN NERI MD Jun 22, 2018 08:18
[2018-06-22] MEDS: guaiFENesin ER 600 MG TAB PO SCH (08:27)
[2018-06-22] MEDS ORDERED: MOXIFLOXACIN HCL 400 MG in APPROPRIATE DILUENT 1 EA IV ONE (10:00)
[2018-06-22 14:24] LABS: BODY FLUID CULTURE Not Indicated (.); LEGIONELLA ANTIGEN URINE Negative (Negative); ORGANISM ID Not indicated. (.); SPECIMEN SOURCE Urine (.); URINE STREP PNEUMONIAE ANTIGEN Negative (Negative)
[2018-06-23 00:08] LABS: ANTI DOUBLE STRAND-DNA AB <1 IU/mL (0-9); ANTINUCLEAR ANTIBODIES DIRECT Negative (Negative); COMPLEMENT TOTAL (CH50) > 60 U/mL (>41)
[2018-06-23] MEDS ORDERED: MOXIFLOXACIN 400 MG TAB PO SCH (06:00)
== END 2018-06-22 12:25 | disposition home or self-care (01) | DRG 871 ==
LOC: M ED 19:29 → M ED INP 06-20 01:50 → M PED 06-20 04:45
PROVIDERS: ADMIT Internal Medicine; ATTEND General Practice
DX: A41.9 Sepsis, unspecified organism (principal); J18.9 Pneumonia, unspecified organism; F31.9 Bipolar disorder, unspecified; G43.909 Migraine, unspecified, not intractable, without status migrainosus; L65.9 Nonscarring hair loss, unspecified

== ENCOUNTER 2019-01-15 06:03 | Emergency (ER) | payer OTHER ==
[~2019-01-15] VITALS: Ht 170.2 cm; Wt 70.5 kg
[~2019-01-15 06:03] MED LIST changes: +AVEL1TAB3 PO; +HYDR-3363 PO; +LAMO25TA4; +LAMO25TA4 PO; +QUET1TAB7; +QUET1TAB7 PO; +TRAZ-252 PO; +VENTAER INH
[2019-01-15 06:04] VITALS: BP 166/79
[2019-01-15] MEDS ORDERED: ATIV1TAB10 PO (06:08)
[2019-01-15] MEDS ORDERED: KETOROLAC 60 MG/2 ML VIAL (J1885) IM ONE (06:45)
[2019-01-15] MEDS ORDERED: ACETAMINOPHEN 500 MG TAB PO ONE (06:45)
[2019-01-15] MEDS ORDERED: GABA-1171 PO (07:29)
[2019-01-15] MEDS ORDERED: KETO10TAB PO (07:29)
[2019-01-15] MEDS ORDERED: GABAPENTIN 100 MG CAP PO ONE (07:30)
== END 2019-01-15 07:50 | disposition home or self-care (01) ==
LOC: M ED 06:03
DX: S02.5XXA Fracture of tooth (traumatic), initial encounter for closed fracture (principal); X58.XXXA Exposure to other specified factors, initial encounter; Y92.89 Other specified places as the place of occurrence of the external cause; Z79.899 Other long term (current) drug therapy; Z88.8 Allergy status to other drugs, medicaments and biological substances; F17.210 Nicotine dependence, cigarettes, uncomplicated
CPT/HCPCS: 96372; 99283; J1885

== ENCOUNTER 2020-02-09 03:28 | Emergency (ER) | payer OTHER ==
[~2020-02-09] VITALS: Ht 170.2 cm; Wt 70.5 kg
[~2020-02-09 03:28] MED LIST changes: +ATIV1TAB10 PO; +GABA-1171 PO; +KETO10TAB PO; +RALTEGRAVIR 400 MG TAB (ISENTRESS) PO SCH; +TRUVADA 200MG/300MG TABLET PO SCH
[2020-02-09] MEDS ORDERED: RALT40TA PO (04:09)
[2020-02-09] MEDS ORDERED: ONDA4TAB6 PO (04:09)
[2020-02-09] MEDS ORDERED: TRUVTAB PO (04:09)
[2020-02-09] MEDS ORDERED: ONDANSETRON 4 MG ORAL DISINTEGRATING TAB PO ONE (04:15)
[2020-02-09] MEDS ORDERED: EXPOSURE KIT-ADULT 7 DAY SUPPLY PO ONE (04:15)
[2020-02-09] MEDS ORDERED: RALTEGRAVIR 400 MG TAB (ISENTRESS) PO ONE (04:15)
[2020-02-09] MEDS ORDERED: TRUVADA 200MG/300MG TABLET PO ONE (04:15)
[2020-02-09 04:39] LABS: BASO % 0.1 % (0.0-1.0); EOS # 0.2 10^3/uL (0.0-0.5); EOS % 1.8 % (0.0-3.0); HEMATOCRIT 38.6 % (36.0-47.0); HEMOGLOBIN 12.4 g/dl (12.0-15.5); LYMPH # 2.7 10^3/uL (1.5-5.0); LYMPH % 29.8 % (24.0-44.0); MEAN CORPUSCULAR HEMOGLOBIN 29.6 pg (27.0-33.0); MEAN CORPUSCULAR HGB CONC 32.1 g/dl (32.0-36.5); MEAN CORPUSCULAR VOLUME 92.1 fl (80.0-96.0); MONO # 0.6 10^3/uL (0.0-0.8); MONO % 7.1 % (0.0-5.0); NEUTROPHILS # 5.5 10^3/uL (1.5-8.5); PLATELET COUNT, AUTOMATED 295 10^3/uL (150-450); RED BLOOD COUNT 4.19 10^6/uL (4.00-5.40)
[2020-02-09 04:53] LABS: ALBUMIN 4.2 GM/DL (3.2-5.2); ALT/SGPT 13 U/L (12-78); BILIRUBIN,TOTAL 0.2 MG/DL (0.2-1.0); BLOOD UREA NITROGEN 25 MG/DL (7-18); CALCIUM LEVEL 8.7 MG/DL (8.5-10.1); CARBON DIOXIDE LEVEL 27 MEQ/L (21-32); CHLORIDE LEVEL 109 MEQ/L (98-107); CREATININE FOR GFR 1.02 MG/DL (0.55-1.30); GLOMERULAR FILTRATION RATE > 60.0 (>58); GLUCOSE, FASTING 89 MG/DL (70-100); POTASSIUM SERUM 4.4 MEQ/L (3.5-5.1); SODIUM LEVEL 141 MEQ/L (136-145); TOTAL PROTEIN 7.1 GM/DL (6.4-8.2)
[2020-02-09 05:01] VITALS: BP 144/96
[2020-02-09 05:53] LABS: HEPATITIS B SURFACE ANTIGEN NEGATIVE (NEGATIVE)
[2020-02-09 05:54] LABS: HIV SCREEN CENTAUR EXPOSED NEGATIVE (NEGATIVE)
[2020-02-11 11:51] LABS: HEPATITIS B SURFACE ANTIBODY POSITIVE (POSITIVE)
== END 2020-02-09 05:03 | disposition home or self-care (01) ==
LOC: M ED 03:28
DX: Z77.21 Contact with and (suspected) exposure to potentially hazardous body fluids (principal); F31.9 Bipolar disorder, unspecified; Z88.8 Allergy status to other drugs, medicaments and biological substances; Z79.899 Other long term (current) drug therapy
CPT/HCPCS: 36415; 80053; 85025; 86706; 86803; 87340; 87389; 99283; Q0162

== ENCOUNTER → 2020-02-19 | Outpatient (CLI) | payer SELFPAY ==
[~2020-02-19] MED LIST changes: +ONDA4TAB6 PO; +RALT40TA PO; -RALTEGRAVIR 400 MG TAB (ISENTRESS) PO SCH; -TRUVADA 200MG/300MG TABLET PO SCH; +TRUVTAB PO
== END ==
LOC: M LABSMTC 10:04
PROVIDERS: ATTEND Pediatrics
DX: Z20.828 Contact with and (suspected) exposure to other viral communicable diseases (principal)

== ENCOUNTER → 2021-09-30 | Outpatient (REF) ==
[~2021-09-30] MED LIST changes: +EMTR1TAB16 PO; +QUET1TAB17; +QUET1TAB17 PO; -QUET1TAB7; -QUET1TAB7 PO; -TRUVTAB PO
== END ==
LOC: M LAB 07:55
PROVIDERS: ATTEND Nurse Practitioner Adult Health
DX: Z02.1 Encounter for pre-employment examination (principal)

== ENCOUNTER → 2021-10-19 | Outpatient (REF) | payer OTHER | LOC: M EMP 02:51 | PROVIDERS: ATTEND Nurse Practitioner Adult Health | DX: Z02.1 Encounter for pre-employment examination (principal) ==

== ENCOUNTER → 2022-08-20 | Outpatient (CLI) | payer BC ==
[2022-08-20 21:19] LABS: HEMATOCRIT 41.6 % (36.0-47.0)
[2022-08-20 21:20] LABS: APPEARANCE, URINE HAZY (CLEAR); BACTERIA, URINE AUTO 1+ (NEGATIVE); BASO % 0.2 % (0.0-1.0); BILIRUBIN, URINE AUTO NEGATIVE (NEGATIVE); BLOOD, URINE BLOOD NEGATIVE (NEGATIVE); COLOR, URINE YELLOW (YELLOW); EOS % 0.3 % (0.0-3.0); GLUCOSE, URINE (UA) AUTO NEGATIVE (NEGATIVE); HEMATOCRIT 41.8 % (36.0-47.0); HEMOGLOBIN 13.6 g/dl (12.0-15.5); KETONE, URINE AUTO TRACE mg/dL (NEGATIVE); LEUKOCYTE ESTERASE, URINE AUTO 1+ (NEGATIVE); LYMPH # 2.6 10^3/uL (1.5-5.0); MEAN CORPUSCULAR HEMOGLOBIN 29.7 pg (27.0-33.0); MEAN CORPUSCULAR HGB CONC 32.5 g/dl (32.0-36.5); MEAN CORPUSCULAR VOLUME 91.3 fl (80.0-96.0); MONO # 0.7 10^3/uL (0.0-0.8); MONO % 5.5 % (2.0-8.0); NEUTROPHILS # 8.4 10^3/uL (1.5-8.5); NEUTROPHILS % 71.7 % (36.0-66.0); NITRITE, URINE AUTO POSITIVE (NEGATIVE); PLATELET COUNT, AUTOMATED 424 10^3/uL (150-450); PROTEIN, URINE AUTO NEGATIVE (NEGATIVE); RBC, URINE AUTO 1 /HPF (0-3); RED BLOOD COUNT 4.58 10^6/uL (4.00-5.40); SPECIFIC GRAVITY URINE AUTO 1.018 (1.002-1.035); SQUAMOUS EPITHELIAL CELL UR AU 1 /HPF (0-6); UROBILINOGEN, URINE AUTO 0.2 mg/dL (0.0-2.0); WBC, URINE AUTO 33 /HPF (0-3); WHITE BLOOD COUNT 11.7 10^3/uL (4.0-10.0)
[2022-08-20 21:47] LABS: ALBUMIN 4.6 G/DL (3.2-5.2); ALKALINE PHOSPHATASE 291 U/L (46-116); ALT/SGPT 57 U/L (7.0-40); AST/SGOT 24 U/L (<34); BILIRUBIN,TOTAL 0.6 MG/DL (0.3-1.2); BLOOD UREA NITROGEN 15 MG/DL (9-23); CALCIUM LEVEL 9.8 MG/DL (8.5-10.1); CARBON DIOXIDE LEVEL 26 MMOL/L (20-31); CHLORIDE LEVEL 102 MMOL/L (98-107); CHOLESTEROL LEVEL 209 MG/DL (<200); CHOLESTEROL RISK RATIO 2.58 (<5); CREATININE FOR GFR 0.94 MG/DL (0.55-1.30); GLOMERULAR FILTRATION RATE > 60.0 (>58); GLUCOSE, FASTING 81 MG/DL (60-100); HDL CHOLESTEROL 80.7 MG/DL (>40); LDL CHOLESTEROL 94.7 MG/DL (<100); NON-HDL-C 128.3 MG/DL; POTASSIUM SERUM 4.5 MMOL/L (3.5-5.1); SODIUM LEVEL 137 MMOL/L (136-145); TOTAL PROTEIN 7.6 G/DL (5.7-8.2); TRIGLYCERIDES LEVEL 168 MG/DL (<150)
[2022-08-20 21:48] LABS: THYROID STIMULATING HORMONE 2.943 uIU/ML (0.55-4.78)
[2022-08-20 21:49] LABS: FREE T3 3.2 PG/ML (2.3-4.2); FREE T4 1.02 NG/DL (0.89-1.76)
[2022-08-20 21:50] LABS: VITAMIN B12 LEVEL 725 PG/ML (211-911)
== END ==
LOC: M LAB 20:32
PROVIDERS: ATTEND Registered Nurse
DX: L65.9 Nonscarring hair loss, unspecified (principal)

== ENCOUNTER → 2023-11-02 | Outpatient (REF) ==
[~2023-11-02] MED LIST changes: +ONDA-282 PO; -ONDA4TAB6 PO
[2023-11-04 14:02] LABS: QuantiFERON-TB Gold Plus NEGATIVE (NEGATIVE)
== END ==
LOC: M LAB 11-01 16:01
PROVIDERS: ATTEND Nurse Practitioner Adult Health
DX: Z02.1 Encounter for pre-employment examination (principal)

== ENCOUNTER → 2024-06-28 | Outpatient (REF) | payer BC ==
[2024-06-28 11:42] LABS: APPEARANCE, URINE CLEAR (CLEAR); BACTERIA, URINE AUTO NEGATIVE (NEGATIVE); BILIRUBIN, URINE AUTO NEGATIVE (NEGATIVE); BLOOD, URINE BLOOD NEGATIVE (NEGATIVE); COLOR, URINE YELLOW (YELLOW); GLUCOSE, URINE (UA) AUTO NEGATIVE (NEGATIVE); KETONE, URINE AUTO NEGATIVE (NEGATIVE); LEUKOCYTE ESTERASE, URINE AUTO NEGATIVE (NEGATIVE); MUCUS, URINE SMALL (NEGATIVE); NITRITE, URINE AUTO NEGATIVE (NEGATIVE); PROTEIN, URINE AUTO NEGATIVE (NEGATIVE); RBC, URINE AUTO 1 /HPF (0-3); SPECIFIC GRAVITY URINE AUTO 1.018 (1.002-1.035); SQUAMOUS EPITHELIAL CELL UR AU 0 /HPF (0-6); UROBILINOGEN, URINE AUTO 0.2 mg/dL (0.0-2.0); WBC, URINE AUTO 0 /HPF (0-3)
== END ==
LOC: M SFHCWAGY 10:14
PROVIDERS: ATTEND Advanced Practice Midwife
DX: N93.9 Abnormal uterine and vaginal bleeding, unspecified (principal); R39.89 Other symptoms and signs involving the genitourinary system

== ENCOUNTER → 2024-12-04 | Outpatient (REF) | payer BC ==
[~2024-12-04] MED LIST changes: +LAMO-18; +LAMO-18 PO; -LAMO25TA4; -LAMO25TA4 PO
[2024-12-04 18:46] LABS: APPEARANCE, URINE CLEAR (CLEAR); BACTERIA, URINE AUTO NEGATIVE (NEGATIVE); BILIRUBIN, URINE AUTO NEGATIVE (NEGATIVE); BLOOD, URINE BLOOD NEGATIVE (NEGATIVE); GLUCOSE, URINE (UA) AUTO NEGATIVE (NEGATIVE); KETONE, URINE AUTO TRACE mg/dL (NEGATIVE); LEUKOCYTE ESTERASE, URINE AUTO NEGATIVE (NEGATIVE); MUCUS, URINE SMALL (NEGATIVE); NITRITE, URINE AUTO NEGATIVE (NEGATIVE); PROTEIN, URINE AUTO NEGATIVE (NEGATIVE); RBC, URINE AUTO 1 /HPF (0-3); SPECIFIC GRAVITY URINE AUTO 1.014 (1.002-1.035); SQUAMOUS EPITHELIAL CELL UR AU 3 /HPF (0-6); UROBILINOGEN, URINE AUTO 0.2 mg/dL (0.0-2.0); WBC, URINE AUTO 3 /HPF (0-3)
== END ==
LOC: M SMT 16:49
PROVIDERS: ATTEND Physician Assistant
DX: R31.0 Gross hematuria (principal)

== ENCOUNTER → 2024-12-21 | Outpatient (CLI) | payer BC ==
[~2024-12-21] MED LIST changes: +ISOVUE-370 76% 100 ML VIAL As Ordered ONE
== END ==
LOC: M RAD 09:37
PROVIDERS: ATTEND Physician Assistant
DX: R31.0 Gross hematuria (principal)
CPT/HCPCS: 74178; Q9967